=== PATIENT | male | born 1955 | race African-American/Black ===

== ENCOUNTER 2019-03-03 08:03 | Emergency (ER) | payer MEDICAID ==
[~2019-03-03] VITALS: Ht 175.3 cm; Wt 115.3 kg
[~2019-03-03 08:03] MED LIST: HTN MEDS
[2019-03-03 08:27] VITALS: BP 135/97
== END 2019-03-03 10:20 | disposition home or self-care (01) ==
LOC: ER 08:27
DX: J06.9 Acute upper respiratory infection, unspecified (principal); I10 Essential (primary) hypertension
CPT/HCPCS: 71045; 99283

== ENCOUNTER → 2019-05-19 | Emergency (ER) | payer MEDICAID ==
[~2019-05-19] VITALS: Ht 175.3 cm; Wt 118.0 kg
[~2019-05-19] MED LIST changes: +IBUPROFEN 800MG TABLET PO ONE; +VISCOUS LIDOCAINE 2% 15 ML UDC MM ONE
[2019-05-19 11:04] VITALS: BP 145/80
== END | disposition home or self-care (01) ==
LOC: ER 09:17
DX: J02.9 Acute pharyngitis, unspecified (principal); I10 Essential (primary) hypertension; Z98.890 Other specified postprocedural states
CPT/HCPCS: 87070; 87430; 99283